=== PATIENT | female | born 1960 | race Caucasian/White ===

== ENCOUNTER 2022-03-13 19:21 | Emergency (ER) | payer OTHER ==
[~2022-03-13] VITALS: Ht 165.1 cm; Wt 92.1 kg
[2022-03-13] MEDS ORDERED: HYDROCODONE/APAP 5-325MG TABLET PO ONE (20:45)
[2022-03-13] MEDS ORDERED: NITROGLYCERIN OINT 1 GM PACKET TP ONE ×2 (20:45→20:54)
[2022-03-13] MEDS ORDERED: ASPIRIN 81 MG TAB.CHEW PO ONE (20:45)
[2022-03-13] MEDS ORDERED: NITROGLYCERIN 0.4 MG/TAB BOTTLE SL ONE ×2 (20:45→20:54)
--- NOTE | 2022-03-13 20:45 | NUR ---
Dr. Bañuelos at bedside. MSE in progress.
[2022-03-13] MEDS ORDERED: ASPIRIN 81 MG TAB.CHEW ONE (20:53)
[2022-03-13] MEDS ORDERED: HYDROCODONE/APAP 5-325MG TABLET ONE (20:55)
[2022-03-13 21:22] LABS: HEMATOCRIT 40.3 % (31.2-41.9); MEAN CORPUSCULAR HEMOGLOBIN 31.2 uug (24.7-32.8); MEAN CORPUSCULAR VOLUME 92.2 fL (75.5-95.3); PLATELET COUNT (AUTO) 263 K/uL (179-408)
[2022-03-13 21:38] LABS: CARBON DIOXIDE 27 mmol/L (21-32); CHLORIDE 102 mmol/L (98-107); CREATININE 0.8 mg/dL (0.6-1.3); GLUCOSE 217 mg/dL (74-106); POTASSIUM 4.1 mmol/L (3.5-5.1); UREA NITROGEN, BLOOD 14 mg/dL (7-18)
[2022-03-13 21:51] LABS: ALANINE AMINOTRANSFERASE 24 U/L (14-59); ALKALINE PHOSPHATASE 89 U/L (50-136); ASPARTATE AMINOTRANSFERASE 17 U/L (15-37); BILIRUBIN,DIRECT 0.1 mg/dL (0.0-0.2); BILIRUBIN,TOTAL 0.2 mg/dL (0.2-1.0); TOTAL PROTEIN, SERUM 7.9 g/dL (6.4-8.2)
[2022-03-13] MEDS ORDERED: INSU100I26 SQ (22:08)
[2022-03-13] MEDS ORDERED: CARV6.252 PO (22:08)
[2022-03-13] MEDS ORDERED: ENOXAPARIN SODIUM 80 MG/0.8 ML DISP.SYRIN SQ ONE (22:15)
[2022-03-13] MEDS ORDERED: ENOXAPARIN SODIUM 100 MG/ML DISP.SYRIN SQ ONE (23:06)
--- NOTE | 2022-03-14 00:40 | NUR ---
Given Authorization # for ambulance transportation to [facility]. Waiting for call back from hospital for room #.
--- NOTE | 2022-03-14 01:36 | NUR ---
Called [employer] and left a voicemail. The number called [phone]
--- NOTE | 2022-03-14 02:25 | NUR ---
Contacted [facility] for ACLS transportation, ETA 1995.
--- NOTE | 2022-03-14 02:32 | NUR ---
Report given to Monica ELLISON at [facility].
--- NOTE | 2022-03-14 03:25 | NUR ---
Report given to HARINDER Nolan EMT. Patient left A/O x4. NAD noted. All belongings with patient.
[2022-03-14 03:31] VITALS: BP 106/59
== END 2022-03-14 03:25 | disposition short-term general hospital (02) ==
LOC: ER 19:21
DX: I21.4 Non-ST elevation (NSTEMI) myocardial infarction (principal); F17.210 Nicotine dependence, cigarettes, uncomplicated; E78.5 Hyperlipidemia, unspecified; E11.9 Type 2 diabetes mellitus without complications; Z79.4 Long term (current) use of insulin; Z79.899 Other long term (current) drug therapy; E66.9 Obesity, unspecified; Z68.33 Body mass index [BMI] 33.0-33.9, adult; I10 Essential (primary) hypertension
CPT/HCPCS: 99285; 71045; 87426; 99406; 80076; 80048; 83880; 85025; 85730; 84484 ×2; 36415; 93005; 96372; J1650; A4663

== ENCOUNTER 2022-04-21 17:08 | Emergency (ER) | payer OTHER ==
[~2022-04-21] VITALS: Ht 165.1 cm; Wt 80.7 kg
[~2022-04-21 17:08] MED LIST: CARV6.252 PO; INSU100I26 SQ
[2022-04-21 17:53] LABS: HEMATOCRIT 37.4 % (31.2-41.9); MEAN CORPUSCULAR HEMOGLOBIN 30.1 uug (24.7-32.8); MEAN CORPUSCULAR VOLUME 91.7 fL (75.5-95.3); PLATELET COUNT (AUTO) 357 K/uL (179-408)
[2022-04-21 18:22] LABS: ALANINE AMINOTRANSFERASE 15 U/L (14-59); ALKALINE PHOSPHATASE 109 U/L (50-136); ASPARTATE AMINOTRANSFERASE 9 U/L (15-37); BILIRUBIN,DIRECT 0.1 mg/dL (0.0-0.2); BILIRUBIN,TOTAL 0.3 mg/dL (0.2-1.0); CARBON DIOXIDE 25 mmol/L (21-32); CHLORIDE 100 mmol/L (98-107); CREATININE 0.8 mg/dL (0.6-1.3); GLUCOSE 202 mg/dL (74-106); LIPASE 95 U/L (73-393); POTASSIUM 3.7 mmol/L (3.5-5.1); TOTAL PROTEIN, SERUM 7.7 g/dL (6.4-8.2); UREA NITROGEN, BLOOD 9 mg/dL (7-18)
[2022-04-21] MEDS ORDERED: IOHEXOL 300MG/ML 100 ML INFUS..BTL ONE (18:29)
[2022-04-21] MEDS ORDERED: IV NORMAL SALINE 250 ML IV ONE (18:29)
[2022-04-21] MEDS ORDERED: SWABABLE VALVE TRANSFER SET EA MC ONE (18:29)
[2022-04-21 18:55] LABS: *BILIRUBIN,URIN NEGATIVE (NEGATIVE); *COLOR,URINE YELLOW (YELLOW); *KETONES,URINE 2+ (NEGATIVE); *UROBILINOGEN,URINE 0.2 E.U./dl (NORMAL); LEUKOCYTE ESTERASE ,URINE TRACE (NEGATIVE); NITRITE, URINE NEGATIVE (NEGATIVE); PH,URINE 5.5 (5.0-8.0); UGLUCOSE 3+ (NEGATIVE)
[2022-04-21 18:56] LABS: *BLOOD, URINE TRACE (NEGATIVE); *CLARITY,URINE HAZY (CLEAR)
[2022-04-21 18:57] LABS: BACTERIA,URINE FEW /HPF (NONE SEEN)
[2022-04-21 18:58] LABS: SQUAMOUS EPITHELIAL CELL,UR FEW /HPF (NONE SEEN)
[2022-04-21] MEDS ORDERED: KETOROLAC TROMETHAMINE 15 MG INJ IVP ONE (20:15)
[2022-04-21] MEDS ORDERED: KETOROLAC TROMETHAMINE 15 MG INJ ONE (20:25)
[2022-04-21] MEDS ORDERED: IBUP-1490 PO (22:36)
[2022-04-21] MEDS ORDERED: ONDA4TAB5 PO (22:36)
--- NOTE | 2022-04-21 22:49 | NUR ---
Patient discharged to home in stable condition. Written and verbal after care instructions given. Patient verbalizes understanding of instructions. Stressed follow up or return to ER for worsening s/s. Patient is a/ox4, NAD noted. Patient is able to walk with steady gait
[2022-04-21 22:50] VITALS: BP 125/78
== END 2022-04-21 22:51 | disposition home or self-care (01) ==
LOC: ER 17:36
DX: K80.20 Calculus of gallbladder without cholecystitis without obstruction (principal); I25.10 Atherosclerotic heart disease of native coronary artery without angina pectoris; Z95.1 Presence of aortocoronary bypass graft; E78.5 Hyperlipidemia, unspecified; E11.9 Type 2 diabetes mellitus without complications; Z79.4 Long term (current) use of insulin; Z79.899 Other long term (current) drug therapy
CPT/HCPCS: 99285; 74177; 96374; 76705; 71045; 80076; 80048; 81001; 83690; 85025; 84484 ×2; 36415; 93005; J1885; Q9967; A4663